=== PATIENT | female | born 1950 | race Caucasian/White ===

== ENCOUNTER 2017-11-02 10:06 | Emergency (ER) | payer OTHER ==
[~2017-11-02] VITALS: Ht 167.6 cm; Wt 46.3 kg
[~2017-11-02 10:06] MED LIST: ALBUTEROL SULFAT4 M1 PO; CARDIZEM CD180 MG PO; PREDNISONE 10 M10 MG PO; SINGULAIR 10 MG10 M1 PO; SYNTHROID50 MCG PO; VENTOLIN HFA 1818 GM INH
[2017-11-02 10:28] LABS: ABSOLUTE EOSINOPHILS 0.1 thou/uL (0.0-0.7); ABSOLUTE LYMPHOCYTES 0.8 thou/uL (0.8-5.3); ABSOLUTE MONOCYTES 0.6 thou/uL (0.0-1.2); ABSOLUTE NEUTROPHILS 3.4 thou/uL (1.6-8.1); HEMATOCRIT 35.5 % (37.0-47.0); HEMOGLOBIN 11.6 gm/dL (12.0-15.0); MCHC 32.7 g/dL (28.0-37.0); MONOCYTES 11.5 %; MPV 8.1 fl. (7.2-11.1); NUCLEATED RBCS 0 /100WBC; PLATELET COUNT* 228 thou/uL (150-400); POLYS 69.5 %; RBC 3.51 mil/uL (4.20-5.00); RDW-CV 12.3 % (10.5-14.5); WBC 4.9 thou/uL (4.0-11.0)
[2017-11-02 10:38] LABS: BUN 8 mg/dL (7-18); CALCIUM 8.9 mg/dL (8.5-10.1); CHLORIDE 96 mmol/L (98-107); CREATININE 0.5 mg/dL (0.6-1.3); GLUCOSE 156 mg/dL (70-99); POTASSIUM 3.7 mmol/L (3.5-5.1); SODIUM 140 mmol/L (136-145)
[2017-11-02 10:49] LABS: ALBUMIN 3.4 g/dL (3.4-5.0); ALKALINE PHOSPHATASE 61 U/L (46-116); NT-PRO BRAIN NAT PEPTIDE 67 pg/mL (<300); SGOT 12 U/L (15-37); SGPT 12 U/L (30-65); TOTAL BILIRUBIN 0.4 mg/dL (<0.1-1.0); TOTAL PROTEIN 7.1 g/dL (6.4-8.2); TROPONIN-I LEVEL <0.06 ng/mL (<0.06)
[2017-11-02 10:53] LABS: CO2 > 45 mmol/L (21-32)
[2017-11-02 12:49] VITALS: BP 131/67
--- NOTE | 2017-11-02 16:24 | EKG ---
[place] [address] ELECTROCARDIOGRAM REPORT Name: PUNEET WATTERS Room: [facility]#: [id number] Admission: 11/02/17 Attend Phys: Discharge: 11/02/17 Date of : 54 Report #: [id number] THIS REPORT FOR: //name// [facility] ED Test Date: 2017-11-02 Test Time: 10:12:17 Pat Name: PUNEETEDDIE WATTERS Department: Room: Gender: F Keyboarding Clerk: Connor CHOWDHURY : 1950 Requested By: Abbe Coronado Order Number: [id number] MD: Marques Damon Measurements Intervals [place] Rate: 101 P: 91 VT: 127 QRS: 66 QRSD: 84 T: 78 QT: 317 QTc: 411 Interpretive Statements Sinus tachycardia Borderline low voltage, extremity leads Borderline ST depression, lateral leads Compared to ECG 04/28/2016 09:08:08 no change Electronically Signed On 11-02-2017 16:24:08 CDT by Marques Damon [email or web address] <ELECTRONICALLY SIGNED> By: Marques Damon MD, [facility] 11/02/17 1624 1012 1012 Marques Damon MD, [facility] /EPI
== END 2017-11-02 13:00 | disposition home or self-care (01) ==
LOC: M.ERS 10:06
PROVIDERS: Emergency Medicine Emergency Medical Services
DX: C34.91 Malignant neoplasm of unspecified part of right bronchus or lung (principal); J43.9 Emphysema, unspecified; E03.9 Hypothyroidism, unspecified; F17.210 Nicotine dependence, cigarettes, uncomplicated; Z88.2 Allergy status to sulfonamides; Z90.710 Acquired absence of both cervix and uterus